=== PATIENT | female | born 1955 | race Hispanic/Latino ===

== ENCOUNTER 2017-08-19 07:06 | Day surgery (SDC) | payer MEDICAID ==
[2016-08-12 11:55] VITALS: BMI 40.3
[2017-08-19] MEDS ORDERED: Lactated Ringer's 500 ML IV ONE (07:38)
[2017-08-19] MEDS ORDERED: Propofol 10 mg/ml Inj (20 ML) ONE ×2 (08:27→08:54)
[2017-08-19 09:14] VITALS: TEMP 96.8
[2017-08-19 09:31] VITALS: BP 123/78; PULSE 68; RESP 14; O2SAT 99
== END 2017-08-19 10:51 | disposition home or self-care (01) ==
LOC: H.ENDO 07:06
PROVIDERS: ATTEND Internal Medicine Gastroenterology
DX: Z12.11 Encounter for screening for malignant neoplasm of colon (principal); E66.01 Morbid (severe) obesity due to excess calories; J44.9 Chronic obstructive pulmonary disease, unspecified; D12.5 Benign neoplasm of sigmoid colon; K57.30 Diverticulosis of large intestine without perforation or abscess without bleeding; K44.9 Diaphragmatic hernia without obstruction or gangrene; K31.89 Other diseases of stomach and duodenum
CPT/HCPCS: 43239; 45385; 88305; J2001; J2704; J7120